=== PATIENT | male | born 1990 | race Caucasian/White ===

== ENCOUNTER 2020-03-20 16:05 | Emergency (ER) | payer OTHER, SELFPAY ==
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
[2020-03-20 17:24] VITALS: BP 120/72; PULSE 71; RESP 18; TEMP 36.6; O2SAT 98; BMI 24.7
[2020-03-20 17:51] VITALS: BP 120/72; PULSE 71; RESP 16; TEMP 36.6; O2SAT 98
[2020-03-20] MEDS: LORazepam 1 MG TABLET 2 MG PO (18:05)
[2020-03-20] MEDS: Nicotine 21 MG PATCH.TD24 TRANSDERMA (18:08)
[2020-03-20 18:36] LABS: Amphetamine Screen Urine Not Detected (Not Detect); Barbiturates, Urine Not Detected (Not Detect); Benzodiazepines Screen Urine Not Detected (Not Detect); Cannabinoid Screen Urine POSITIVE (Not Detect); Cocaine Screen Urine Not Detected (Not Detect); Opiate Screen Urine Not Detected (Not Detect); Phencyclidine Screen Urine Not Detected (Not Detect)
--- NOTE | 2020-03-20 18:50 | PC.NURSE ---
PT contact is his mother, Trinity, at [phone]. Consent obtain to disclose info to the mother.
--- NOTE | 2020-03-20 19:22 | PC.NURSE ---
Patient in bed appears sleeping, called [facility]/spoke with Dakotah/confirmed receipt of referral/no ETA, will continue to monitor.
--- NOTE | 2020-03-20 20:00 | PC.NURSE ---
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
[2020-03-21] MEDS: Nicotine Polacrilex 2 MG GUM BUCCAL (02:00)
--- NOTE | 2020-03-21 02:56 | PC.NURSE ---
MIRTHAN updated patient's disposition, patient can be discharged with partial hospitalization plan. Patient is on phone calling family member for a rdie. will continue to monitor.
== END 2020-03-21 03:29 | disposition home or self-care (01) ==
PROVIDERS: Emergency Provider Internal Medicine; PCP Pediatrics
DX: F31.9 Bipolar disorder, unspecified (principal); F41.9 Anxiety disorder, unspecified; F17.200 Nicotine dependence, unspecified, uncomplicated; Z59.0 Homelessness; F11.10 Opioid abuse, uncomplicated
CPT/HCPCS: 80307; 99284